=== PATIENT | female | born 1950 | race Caucasian/White ===

== ENCOUNTER 2020-05-06 01:16 | Inpatient (IN) | payer MEDICARE ==
[~2020-05-06] VITALS: Ht 162.6 cm; Wt 68.8 kg
[2020-05-06 03:45] LABS: Appearance, Urine Clear (Clear); Bilirubin, Urine Neg (Neg); Blood, Urine 1+ (Neg); Color, Urine Yellow (P-Yellow); Glucose Qualitative, Urine 3+ (Neg); Ketones, Urine 4+ (Neg); Leukocyte Esterase, Urine 1+ (Neg); Nitrite, Urine Neg (Neg); Protein, Urine 2+ (Neg); Urobilinogen, Urine NORM (Normal)
[2020-05-06 03:46] LABS: Amorphous Light (0-Heavy); Bacteria Few /hpf; Mucus Light (0-Heavy); Red Blood Cells, Urine Rare /hpf (0-2); Squamous Epithelial Cells Not Seen /hpf (Few); White Blood Cells, Urine 0-2 /hpf (0-5)
[2020-05-06 04:02] LABS: BASOPHILS ABSOLUTE AUTO 0.07 K/mm3 (0.00-0.23); BASOPHILS PERCENT AUTO 0 % (0-2); EOSINOPHILS PERCENT AUTO 0 % (0-6); Hematocrit 46.7 % (33.0-51.0); Hemoglobin 16.2 g/dL (11.5-16.0); IMMATURE GRAN ABSOLUTE AUTO 0.12 K/mm3 (0.00-0.10); IMMATURE GRAN PERCENT AUTO 1 % (0-1); LYMPHOCYTES PERCENT AUTO 11 % (21-46); MONOCYTES ABSOLUTE AUTO 0.76 K/mm3 (0.16-1.47); MONOCYTES PERCENT AUTO 4 % (4-13); Mean Corpuscular HGB 29.5 pg (26.0-34.0); Mean Corpuscular HGB Conc 34.7 g/dL (31.5-36.5); Mean Corpuscular Volume 85 fL (80-100); Mean Platelet Volume 10.1 fL (9.1-12.4); NEUTROPHILS ABSOLUTE AUTO 16.52 K/mm3 (1.96-9.15); NEUTROPHILS PERCENT AUTO 84 % (41-73); Platelet Count 334 K/mm3 (150-400); RDW Coefficient Variation 11.6 % (11.7-14.2); RDW Standard Deviation 35.5 fL (35.1-46.3); White Blood Cell Count 19.67 K/mm3 (4.00-11.30)
[2020-05-06 04:03] LABS: Alanine Aminotransfer (ALT/SGP 45 U/L (12-78); Albumin, Blood 4.1 g/dL (3.4-5.0); Albumin/Globulin Ratio 1.1 (0.8-1.8); Alk Phos 132 U/L (50-136); Anion Gap 11 mmol/L (6-16); Aspartate Aminotrans (AST/SGOT 28 U/L (12-37); Bilirubin, Total 0.5 mg/dL (0.1-1.0); Blood Urea Nitrogen 21 mg/dL (8-24); Bun/Creatinine Ratio 36.7 (12.0-20.0); CO2, Blood 23 mmol/L (21-32); Calcium, Blood 10.2 mg/dL (8.5-10.1); Chloride, Blood 105 mmol/L (98-108); Creatinine, Blood 0.57 mg/dL (0.40-1.00); Globulin, Blood 3.9 g/dL (2.2-4.0); Glomerular Filtration Rate >60 (60-); Glucose, Blood 252 mg/dL (70-99); Potassium, Blood 3.6 mmol/L (3.5-5.5); Sodium, Blood 139 mmol/L (136-145)
[2020-05-06] MEDS ORDERED: SITA50T2 (04:41)
[2020-05-06] MEDS ORDERED: ASPI325 PO (06:01)
[2020-05-06 06:31] LABS: BASOPHILS ABSOLUTE AUTO 0.04 K/mm3 (0.00-0.23); BASOPHILS PERCENT AUTO 0 % (0-2); EOSINOPHILS PERCENT AUTO 0 % (0-6); Hematocrit 43.5 % (33.0-51.0); Hemoglobin 15.2 g/dL (11.5-16.0); IMMATURE GRAN ABSOLUTE AUTO 0.09 K/mm3 (0.00-0.10); IMMATURE GRAN PERCENT AUTO 1 % (0-1); LYMPHOCYTES ABSOLUTE AUTO 1.06 K/mm3 (0.84-5.20); LYMPHOCYTES PERCENT AUTO 7 % (21-46); MONOCYTES ABSOLUTE AUTO 0.52 K/mm3 (0.16-1.47); MONOCYTES PERCENT AUTO 3 % (4-13); Mean Corpuscular HGB 30.2 pg (26.0-34.0); Mean Corpuscular HGB Conc 34.9 g/dL (31.5-36.5); Mean Corpuscular Volume 86 fL (80-100); Mean Platelet Volume 9.8 fL (9.1-12.4); NEUTROPHILS ABSOLUTE AUTO 14.15 K/mm3 (1.96-9.15); NEUTROPHILS PERCENT AUTO 89 % (41-73); Platelet Count 271 K/mm3 (150-400); RDW Coefficient Variation 11.7 % (11.7-14.2); RDW Standard Deviation 37.1 fL (35.1-46.3); Red Blood Cell Count 5.04 M/mm3 (3.80-5.20); White Blood Cell Count 15.86 K/mm3 (4.00-11.30)
[2020-05-06 07:08] LABS: Alanine Aminotransfer (ALT/SGP 44 U/L (12-78); Albumin, Blood 3.7 g/dL (3.4-5.0); Albumin/Globulin Ratio 1.1 (0.8-1.8); Alk Phos 106 U/L (50-136); Anion Gap 8 mmol/L (6-16); Aspartate Aminotrans (AST/SGOT 24 U/L (12-37); Bilirubin, Total 0.6 mg/dL (0.1-1.0); Blood Urea Nitrogen 13 mg/dL (8-24); Bun/Creatinine Ratio 24.7 (12.0-20.0); CO2, Blood 25 mmol/L (21-32); Calcium, Blood 8.7 mg/dL (8.5-10.1); Chloride, Blood 108 mmol/L (98-108); Creatinine, Blood 0.53 mg/dL (0.40-1.00); Globulin, Blood 3.5 g/dL (2.2-4.0); Glomerular Filtration Rate >60 (60-); Glucose, Blood 193 mg/dL (70-99); Potassium, Blood 3.7 mmol/L (3.5-5.5); Sodium, Blood 141 mmol/L (136-145); Total Protein, Blood 7.2 g/dL (6.4-8.2)
[2020-05-06 08:27] LABS: Influenza A, PCR NEGATIVE (NEGATIVE); Influenza B, PCR NEGATIVE (NEGATIVE); Resp Syncytial Virus, PCR NEGATIVE (NEGATIVE); SARS-Cov-2 (COVID-19) PCR, MMC NEGATIVE (NEGATIVE)
--- NOTE | 2020-05-06 10:43 | NUR ---
CHEY BROUGHT TO ROOM 234, TELE NOTIFIED OF PT MOVE
--- NOTE | 2020-05-06 10:43 | NUR ---
TRANSFER PT ON HER WAY TO SURGERY, REPORT CALLED TO ARABELLA WELLINGTON ON SURGICAL FLOOR, PT TO GO TO ROOM 234 POST SURGERY
--- NOTE | 2020-05-06 13:09 | NUR ---
05/06/20 1309 Homero Jenkins ALL CHARTING DONE BY JOAO CROCKER. VIKTORIYA WELLINGTON PLACED JONES CATH.
--- NOTE | 2020-05-06 15:04 | NUR ---
PACU - PT MOANING SAYING "OW, OW" BUT WHEN ASKED IF PATIENT IS HAVING PATN SHE STATES "NO" AND DENIES NEED FOR PAIN MEDICATION. WILL MONITOR CLOSELY
--- NOTE | 2020-05-06 15:34 | NUR ---
1510 ASSUMED CARE A/O RATES PAIN AT 4/10 DECLINES NEED OF ANYTHING AT THIS TIME DROWSY BUT WAKES EASILY TO VERBAL STIMULI DRSG WITH SCANT RED DRNG FOLWY DRNG YELLOW URINE
--- NOTE | 2020-05-06 16:17 | NUR ---
PT ARRIVED TO UNIT FROM PACU AT APROX 1550. PT WAS VOMITING UPON ARRIVAL TO UNIT, 50M GREEN LIQUID. MEDICATED WITH 12.5MG PHENERGAN. PT APPEARS TO BE RESTING COMFORTABLY AT THIS TIME, NAUSEA RESOLVED. MIDLINE PICCO DRESSING WITH QUARTER SIZE AMT DRAINAGE PRESENT. PT REPORTS PAIN 6/10 WHEN AWAKE BUT FALLS BACK ASLEEP EASILY. O2 SAT DOWN TO 87% AFTER ADMINISTRATION OF PHENERGAN, PLACED ON 2.5L O2 NC-O2 SAT 94%. JONES PATENT, DRAINING CLEAR YELLOW URINE. IVF PER EMAR.
[2020-05-07 04:29] LABS: BASOPHILS ABSOLUTE AUTO 0.02 K/mm3 (0.00-0.23); BASOPHILS PERCENT AUTO 0 % (0-2); EOSINOPHILS PERCENT AUTO 0 % (0-6); Hematocrit 39.4 % (33.0-51.0); Hemoglobin 13.7 g/dL (11.5-16.0); IMMATURE GRAN ABSOLUTE AUTO 0.09 K/mm3 (0.00-0.10); IMMATURE GRAN PERCENT AUTO 1 % (0-1); LYMPHOCYTES ABSOLUTE AUTO 0.99 K/mm3 (0.84-5.20); LYMPHOCYTES PERCENT AUTO 5 % (21-46); MONOCYTES ABSOLUTE AUTO 1.26 K/mm3 (0.16-1.47); MONOCYTES PERCENT AUTO 7 % (4-13); Mean Corpuscular HGB 30.2 pg (26.0-34.0); Mean Corpuscular HGB Conc 34.8 g/dL (31.5-36.5); Mean Corpuscular Volume 87 fL (80-100); NEUTROPHILS ABSOLUTE AUTO 15.98 K/mm3 (1.96-9.15); NEUTROPHILS PERCENT AUTO 87 % (41-73); Platelet Count 279 K/mm3 (150-400); RDW Coefficient Variation 11.9 % (11.7-14.2); RDW Standard Deviation 37.8 fL (35.1-46.3); Red Blood Cell Count 4.53 M/mm3 (3.80-5.20); White Blood Cell Count 18.34 K/mm3 (4.00-11.30)
[2020-05-07 04:46] LABS: Anion Gap 6 mmol/L (6-16); Blood Urea Nitrogen 11 mg/dL (8-24); Bun/Creatinine Ratio 19.2 (12.0-20.0); CO2, Blood 26 mmol/L (21-32); Calcium, Blood 8.2 mg/dL (8.5-10.1); Chloride, Blood 106 mmol/L (98-108); Creatinine, Blood 0.57 mg/dL (0.40-1.00); Glomerular Filtration Rate >60 (60-); Glucose, Blood 210 mg/dL (70-99); Potassium, Blood 3.3 mmol/L (3.5-5.5); Sodium, Blood 138 mmol/L (136-145)
--- NOTE | 2020-05-07 08:05 | NUR ---
iv toradol given pain 6-08/23 pt stated pain goes down to 3/10 declines iv fent stated if she loida her cl diet would like to trial tramadol for pain pt stated she slept off and on a little better then the night before
--- NOTE | 2020-05-07 08:53 | NUR ---
IV KCL RIDER INFUSING
--- NOTE | 2020-05-07 10:19 | NUR ---
DR FUENTES BY TO SEE PT PO TRAMADOL GIVEN WILL GET UP TO CHAIR IN 45 MIN TO A HR
--- NOTE | 2020-05-07 11:47 | NUR ---
pt oob to recliner with assist loida well abd binder placed pt brushed her hair and teeth pt req to get back to bed
--- NOTE | 2020-05-07 12:10 | NUR ---
[facility] TO DR FUENTES CALLED FENT 25 MCG GIVEN FOR BREAKTHRU PAIN NEXT DOSE OF TORADOL AND TRAMADOL DUE AT 1400
--- NOTE | 2020-05-07 14:21 | NUR ---
pt visiting with family
--- NOTE | 2020-05-07 17:50 | NUR ---
pt sleeping wakes to verbal stimuli meds given as sched
[2020-05-08 04:44] LABS: Hematocrit 33.4 % (33.0-51.0); Hemoglobin 11.2 g/dL (11.5-16.0); Mean Corpuscular HGB 30.4 pg (26.0-34.0); Mean Corpuscular HGB Conc 33.5 g/dL (31.5-36.5); Mean Corpuscular Volume 91 fL (80-100); Mean Platelet Volume 10.4 fL (9.1-12.4); Platelet Count 207 K/mm3 (150-400); RDW Coefficient Variation 12.1 % (11.7-14.2); RDW Standard Deviation 39.8 fL (35.1-46.3); Red Blood Cell Count 3.69 M/mm3 (3.80-5.20); White Blood Cell Count 10.99 K/mm3 (4.00-11.30)
[2020-05-08 05:11] LABS: Anion Gap 4 mmol/L (6-16); Blood Urea Nitrogen 16 mg/dL (8-24); Bun/Creatinine Ratio 27.5 (12.0-20.0); CO2, Blood 29 mmol/L (21-32); Calcium, Blood 8.3 mg/dL (8.5-10.1); Chloride, Blood 107 mmol/L (98-108); Creatinine, Blood 0.58 mg/dL (0.40-1.00); Glomerular Filtration Rate >60 (60-); Glucose, Blood 145 mg/dL (70-99); Potassium, Blood 3.9 mmol/L (3.5-5.5); Sodium, Blood 140 mmol/L (136-145)
--- NOTE | 2020-05-08 06:16 | NUR ---
POD 2 S/P MARIEL COLECTOMY. PT VSS T/O NIGHT. ROSELYN DRESSING W/SEAL AND SX INTACT W/NO NEW DRNG NOTED. PAIN MGD PER EMAR W/REP RELIEF. PO INTAKE MINIMAL, PT DENIED N/V, REP NO FLATUS YET. IVF CONT PER ORDERS. JONES CATH D/C THIS AM; AWAITING FIRST VOID. PLAN TO ASSIST W/MOBILIZATION PT MARK
--- NOTE | 2020-05-08 08:43 | NUR ---
PT TACHY [id number] PER TELE. SPOKE TO DR FUENTES REGARDING HR. ORDERS OBTAINED.
--- NOTE | 2020-05-08 12:09 | NUR ---
DR TURCIOS IN TO SEE PT.
[2020-05-08 19:22] LABS: Hematocrit 32.6 % (33.0-51.0); Hemoglobin 10.7 g/dL (11.5-16.0); Mean Corpuscular HGB 29.9 pg (26.0-34.0); Mean Corpuscular HGB Conc 32.8 g/dL (31.5-36.5); Mean Corpuscular Volume 91 fL (80-100); Platelet Count 221 K/mm3 (150-400); RDW Standard Deviation 40.3 fL (35.1-46.3); Red Blood Cell Count 3.58 M/mm3 (3.80-5.20)
[2020-05-08 19:40] LABS: Anion Gap 5 mmol/L (6-16); Blood Urea Nitrogen 14 mg/dL (8-24); CO2, Blood 28 mmol/L (21-32); Calcium, Blood 8.1 mg/dL (8.5-10.1); Chloride, Blood 104 mmol/L (98-108); Creatinine, Blood 0.67 mg/dL (0.40-1.00); Glomerular Filtration Rate >60 (60-); Glucose, Blood 153 mg/dL (70-99); Potassium, Blood 3.6 mmol/L (3.5-5.5); Sodium, Blood 137 mmol/L (136-145); Troponin I 0.038 ng/mL (0.000-0.040)
--- NOTE | 2020-05-08 20:11 | NUR ---
SHIFT SUMMARY CARE ASSUMED OF PT AT 1615. HR REMAINS ELEVATED, FLUID RATE INCREASED PER DR. FUENTES. PT PLACED ON 2L O2 VIA NC FOR O2 SATURATION IN THE 80'S. SATURATION IMPROVED WITH DEEP BREATHING THEN DECREASED BELOW 90% SO O2 WAS NEEDED. RT NOTIFIED. CHEST XRAY AND LABS ORDERED. REPORT GIVEN TO TRACEY WELLINGTON.
--- NOTE | 2020-05-09 02:49 | NUR ---
BM: PT HAD LARGE MAROON COLORED BM. STOOL WAS UNFORMED W/SEVERAL FORMED PIECES, FORMED STOOL MORE BROWN.
--- NOTE | 2020-05-09 05:35 | NUR ---
POD 3 S/P MARIEL COLECTOMY. PT VSS T/O NIGHT, HR TRENDING 80'S THIS AM. SATS >90% ON 1LO2 NC. PT USING I/S W/REMINDING. NO CHANGE TO DRNG ON ROSELYN DRESSING; SEAL AND SX INTACT. PT HAD NO C/O N/V, PT DID HAVE 1 LARGE MAROON BM. PT UP OOB W/SBA; MARK WELL.
[2020-05-09 08:25] LABS: Hematocrit 29.4 % (33.0-51.0); Hemoglobin 9.8 g/dL (11.5-16.0)
[2020-05-09 08:48] LABS: Anion Gap 4 mmol/L (6-16); Blood Urea Nitrogen 10 mg/dL (8-24); Bun/Creatinine Ratio 19.1 (12.0-20.0); CO2, Blood 31 mmol/L (21-32); Calcium, Blood 8.2 mg/dL (8.5-10.1); Chloride, Blood 107 mmol/L (98-108); Creatinine, Blood 0.52 mg/dL (0.40-1.00); Glomerular Filtration Rate >60 (60-); Glucose, Blood 125 mg/dL (70-99); Potassium, Blood 3.5 mmol/L (3.5-5.5); Sodium, Blood 142 mmol/L (136-145)
--- NOTE | 2020-05-09 19:29 | NUR ---
SUMMARY NO ACUTE CHANGES T/O SHIFT. PT TOLERATING REGULAR DIET. AMBULATED IN CASH AND SAT UP IN CHAIR. PAIN MANAGED PER ORDERS. CALL LIGHT IN REACH.
--- NOTE | 2020-05-10 04:41 | NUR ---
SHIFT SUMMARY POD#4 RIGHT HEMICOLECTOMY WITH ROSELYN. AAOX4. DISCOMFORT CONTROLLED WITH X1 ULTRAM THIS SHIFT. NO NAUSEA/EMESIS. DRESSING TO ABD WITH ROSELYN, SMALL AMOUNT OF DRY RED DRAINAGE, NO CHANGE THIS SHIFT. TOLERATING REGULAR DIET. PT REPORTING MULTILPE LOOSE BMs YESTARDAY. RESTING WELL THIS NOC SHIFT WITH CALL LIGHT IN REACH.
[2020-05-10] MEDS ORDERED: TRAM50 PO (13:24)
--- NOTE | 2020-05-10 15:43 | NUR ---
DISCHARGE PT DISCHARGED HOME FROM UNIT. PT AND DAUGHTER GIVEN WRITTEN AND VERBAL DISCHARGE INSTRUCTIONS AND VERBALIZED UNDERSTANDING OF THESE INSTRUCTIONS. IV REMOVED. WHEELCHAIR TO CAR.
== END 2020-05-10 15:42 | disposition home or self-care (01) | DRG 853 ==
LOC: ER 01:16 → MEDS 04:59 → SURS 04:59 → MEDS 05:00 → SURS 10:58
PROVIDERS: Emergency Medicine; Internal Medicine; Surgery; ADMIT Internal Medicine
PROC: 0DTF0ZZ Resection of Right Large Intestine, Open Approach (ICD-10-PCS; principal; 2020-05-06 11:00)
DX: A41.9 Sepsis, unspecified organism (principal); K56.2 Volvulus; R65.20 Severe sepsis without septic shock; Z20.822 Contact with and (suspected) exposure to COVID-19; E87.6 Hypokalemia; E11.9 Type 2 diabetes mellitus without complications; Z79.82 Long term (current) use of aspirin; Z90.710 Acquired absence of both cervix and uterus; Z79.899 Other long term (current) drug therapy
CPT/HCPCS: 0241U; 36415; 71045; 74177; 80048; 80053; 81001; 82947; 83605; 83690; 84484; 85014; 85018; 85025; 85027; 87040; 87086; 88307; 93005; 93010; 96365-59; 96375; 96376; 99285-25; A9270; C9113; J1100; J1650; J1815; J1885; J2250; J2270; J2310; J2370; J2405; J2543; J2550; J2704; J3010; J3480; J7030; J7120; Q9967

== ENCOUNTER 2020-12-23 12:19 | Day surgery (SDC) | payer MEDICARE ==
[~2020-12-23] VITALS: Ht 162.6 cm; Wt 63.9 kg
[~2020-12-23 12:19] MED LIST: ASPI325 PO; SITA50T2; TRAM50 PO
== END 2020-12-23 14:33 | disposition home or self-care (01) ==
LOC: ORSCSDS 12:19 → ORD 14:45 → ORSCSDS 14:45
PROVIDERS: Surgery
PROC: 0DJD8ZZ Inspection of Lower Intestinal Tract, Via Natural or Artificial Opening Endoscopic (ICD-10-PCS; principal; 2020-12-23 13:30)
DX: Z12.11 Encounter for screening for malignant neoplasm of colon (principal); K57.30 Diverticulosis of large intestine without perforation or abscess without bleeding; E78.5 Hyperlipidemia, unspecified; E11.9 Type 2 diabetes mellitus without complications; Z79.82 Long term (current) use of aspirin; Z79.899 Other long term (current) drug therapy
CPT/HCPCS: 82947; J2704; J7120

== ENCOUNTER 2024-10-24 11:14 | Day surgery (SDC) | payer OTHER ==
[~2024-10-24] VITALS: Ht 162.6 cm; Wt 62.6 kg
[~2024-10-24 11:14] MED LIST changes: +Balanced Salt Epinephrine Irrigation Solution 500 mL IR SCH; +Moxifloxacin HCL 0.5 MG/0.1 ML 0.4MLSYR RIGHTEYE SCH; +Ondansetron 4 MG SoluTab MM PRN; +PHENYLEPHRINE\\TROPICAMIDE\\TETRACAINE OPHTHALMIC DILATING SOLN RIGHTEYE PRN; +Povidone-Iodine 450 DROP/30 ML Solution RIGHTEYE SCH
[2024-10-24] MEDS ORDERED: LISI5 (12:44)
[2024-10-24] MEDS ORDERED: GLIP5 PO (12:45)
--- NOTE | 2024-10-24 12:52 | NUR ---
10/24/24 1252 Denita Prieto PT STATES ANXIETY LEVEL IS 0/10 PT IS ON CONTINUOUS PULSE OX MONITORING CALL LIGHT IN HAND
[2024-10-24] MEDS ORDERED: Povidone-Iodine 450 DROP/30 ML Solution ONE (13:02)
[2024-10-24] MEDS ORDERED: Tetracaine HCl/Pf 0.5% Opth Soln 4 ml ONE (13:02)
[2024-10-24] MEDS ORDERED: Tetracaine HCl 0.5% Opth Soln 15 ml ONE (13:04)
--- NOTE | 2024-10-24 13:21 | NUR ---
10/24/24 1321 CHARLEE CHEN PT VSS T/O 129/70 HR73 O2 96% ON BLOWBY
[2024-10-24 13:51] VITALS: BP 128/76
== END 2024-10-24 13:48 | disposition home or self-care (01) ==
LOC: ORSCSDS 11:14
PROVIDERS: Student in an Organized Health Care Education/Training Program
PROC: 08RJ3JZ Replacement of Right Lens with Synthetic Substitute, Percutaneous Approach (ICD-10-PCS; principal; 2024-10-24 14:00)
DX: E11.36 Type 2 diabetes mellitus with diabetic cataract (principal); H25.813 Combined forms of age-related cataract, bilateral; I10 Essential (primary) hypertension; E78.5 Hyperlipidemia, unspecified; Z79.84 Long term (current) use of oral hypoglycemic drugs; Z79.82 Long term (current) use of aspirin; Z79.899 Other long term (current) drug therapy
CPT/HCPCS: A9270; V2632